=== PATIENT | female | born 1950 | race American Indian/Alaskan Native ===

== ENCOUNTER 2018-02-21 11:26 | Day surgery (SDC) | payer MEDICARE ==
[~2018-02-21 11:26] MED LIST: ANCEF/STERILE WATER 2 GM/20 ML IV NR; DIPRIVAN 10 MG/ML IV ONE; SUBLIMAZE ONE; XYLOCAINE MPF 2% ONE
[2018-02-21] MEDS ORDERED: NACL BACTERIOSTATIC INFILTRATI ONE (12:35)
--- NOTE | 2018-02-21 12:52 | Anesthesia Day of Surgery ---
Anesthesia Day of Surgery - Day of Surgery Patient Examined: Yes Patient H&P Reviewed: Yes Patient is NPO: Yes
[2018-02-21] MEDS ORDERED: DILAUDID IV PRN (12:53)
[2018-02-21] MEDS ORDERED: ZOFRAN IV PRN (12:53)
--- NOTE | 2018-02-21 12:53 | Anesthesia Consultation ---
Anesthesia Consult and Med Hx Date of service: 02/21/18 - Airway Anesthetic Teeth Evaluation: Good ROM Head & Neck: Adequate Mental/Hyoid Distance: Adequate Mallampati Class: Class I Intubation Access Assessment: Good - Pulmonary Exam CTA: Yes - Cardiac Exam Cardiac Exam: RRR - Pre-Operative Health Status ASA Pre-Surgery Classification: ASA2 Proposed Anesthetic Plan: General (Ga with LMA ok) - Pulmonary Hx Smoking: Yes (1/2PPD X 30 YRS) COPD: Yes (DAILY INHALERS) Hx Sleep Apnea: (BENJA PRE SCREEN LOW RISK) - Cardiovascular System Hx Hypertension: Yes (X 2 YRS) Hx Peripheral Vascular Disease: Yes (LEGS- WITH PAIN/ HAS STENTS) - Hematic Hx Anemia: Yes (ON DAILY IRON) Hx Sickle Cell Disease: No (SC TRAIT ONLY)
[2018-02-21 12:58] LABS: Basophils % (Auto) 0.9 % (0.0-1.8); Eosinophils % (Auto) 0.8 % (0.0-4.3); Hematocrit 47.5 % (30.3-42.9); Hemoglobin 14.8 gm/dl (10.1-14.3); Lymphocytes # (Auto) 1.3 K/mm3 (1.2-5.4); Lymphocytes % (Auto) 30.3 % (13.4-35.0); Mean Corpuscular HGB Conc 31 % (30-34); Mean Corpuscular Hemoglobin 25 pg (28-32); Mean Corpuscular Volume 79 fl (79-97); Monocytes # (Auto) 0.4 K/mm3 (0.0-0.8); Monocytes % (Auto) 8.5 % (0.0-7.3); Red Cell Distribution Width 18.5 % (13.2-15.2)
[2018-02-21] MEDS ORDERED: LACTATED RINGERS 1,000 ML IV SCH ×2 (13:00)
[2018-02-21] MEDS ORDERED: VERSED IV NR (13:00)
[2018-02-21] MEDS ORDERED: VERSED IV PRN (13:00)
[2018-02-21 13:10] LABS: BUN/Creatinine Ratio 12; Blood Urea Nitrogen 11 mg/dL (7-17); Calcium 9.3 mg/dL (8.4-10.2); Hemolysis Index 35
[2018-02-21] MEDS ORDERED: D50W (25GM) Syringe IV ONE (13:17)
[2018-02-21] MEDS ORDERED: WATER FOR IRRIG STERILE IR ONE (13:35)
[2018-02-21] MEDS ORDERED: OMNIPAQUE (300 MG) IR ONE (13:43)
[2018-02-21] MEDS ORDERED: NEO SYNEPHRINE/NS Syringe(OR USE) IV ONE (13:44)
[2018-02-21] MEDS ORDERED: ZOFRAN ONE (14:09)
--- NOTE | 2018-02-21 14:19 | Short Stay Summary ---
Short Stay Documentation Date of service: 02/21/18 - History H&P: obtained from office - Allergies and Medications Current Medications: Allergies Sulfa (Sulfonamide Antibiotics) Allergy (Verified 02/12/18 11:45) Hives Home Medications Medication Instructions Recorded Confirmed Last Taken Type ALBUTEROL Inhaler [Proair] 2 puff IH BID 02/12/18 02/21/18 02/20/18 20:00 History Alendronate Sodium [Fosamax] 70 mg PO QWEEK 02/12/18 02/21/18 02/14/18 History Aspirin [Lo-Dose Aspirin EC] 81 mg PO DAILY 02/12/18 02/21/18 02/14/18 History Carvedilol [Coreg] 3.125 mg PO BID 02/12/18 02/21/18 02/21/18 07:00 History Cilostazol [Pletal] 50 mg PO BID 02/12/18 02/21/18 02/14/18 History Ferrous Sulfate [Iron] 325 mg PO DAILY 02/12/18 02/21/18 02/20/18 History Simvastatin [Zocor TAB] 40 mg PO QHS 02/12/18 02/21/18 02/20/18 History Tizanidine HCl [Zanaflex] 4 mg PO PRN PRN 02/12/18 02/21/18 02/20/18 History traMADol [Ultram] 50 mg PO Q4HR PRN 02/12/18 02/21/18 02/20/18 History Active Medications Cefazolin Sodium (Ancef/Sterile Water 2 Gm/20 Ml) 2 gm IV PREOP NR Stop: 02/21/18 16:00 Hydromorphone HCl (Dilaudid) 0.25 mg IV Q10MIN PRN PRN Reason: Pain, Moderate (4-6) Lactated Ringer's (Lactated Ringers) 1,000 mls @ 100 mls/hr IV DIRECT SANCHEZ Last Admin: 02/21/18 13:00 Dose: 100 mls/hr Lactated Ringer's (Lactated Ringers) 1,000 mls @ 100 mls/hr IV DIRECT SANCHEZ Midazolam HCl (Versed) 2 mg IV PREOP NR Stop: 02/21/18 23:59 Last Admin: 02/21/18 13:00 Dose: 2 mg Ondansetron HCl (Zofran) 4 mg IV ONCE PRN PRN Reason: Nausea And Vomiting - Brief post op/procedure progress note Date of procedure: 02/21/18 Pre-op diagnosis: rt hydronephrosis Post-op diagnosis: same Procedure: cysto, rpg, ureteral dilation, ureteroscopy, stent (6x24) external string Anesthesia: LEANDRO Surgeon: KENZIE PFEIFFER Estimated blood loss: minimal Condition: stable - Hospital course Hospital course: bisi franklin, post op info on chart - Disposition Condition at discharge: Stable Disposition: DC-01 TO HOME OR SELFCARE Short Stay Discharge Plan Follow up with: JAMIL BUSBY [Other] - 7 Days
[2018-02-21 14:29] LABS: Platelet Count 126 K/mm3 (140-440)
--- NOTE | 2018-02-21 14:45 | Operative Report ---
PREOPERATIVE DIAGNOSIS: Right hydronephrosis. POSTOPERATIVE DIAGNOSES: Right hydronephrosis secondary to stricture. PROCEDURE: Cystoscopy, bilateral retrograde pyelograms, right ureteral dilatation, right flexible ureteroscopy, right double-J stent placement (6-[place] 24 cm with an external string). SURGEON: Vitaliy Garcia MD ANESTHESIA: General. ESTIMATED BLOOD LOSS: Minimal. FLUIDS: Crystalloid. COMPLICATIONS: No complications. INDICATIONS: This patient is a 67-year-old female seen in the office for right hydronephrosis. She actually has bilateral flank pain. Discussed options. She was cleared by primary care physician (Dr. Rowan). Also, her CT and MRI revealed significant degenerative joint disease. DESCRIPTION OF PROCEDURE: The patient was taken to the operative suite, placed in a supine position. After adequate general anesthesia, placed in a dorsal lithotomy position, prepped and draped in a sterile fashion. Pancystourethroscopy was performed with a 22-[place] Storz cystoscope, no urethral or bladder abnormalities. Both ureteral orifices in normal position. Bilateral retrograde pyelograms were obtained with an 8-[place] catheter and 8 mL of contrast. No filling defects or obstruction on the left. Right side revealed a convoluted ureter with some lateral deviation and two areas of stenosis in the proximal and distal ureter. She also had an aortobifemoral graft that may have had some scar tissue at the time of that surgery. Two 0.035 Glidewires were placed. Attempts at flexible ureteroscopy were unsuccessful, needed a 12-[place] access sheath to dilate the tract. Flexible ureteroscopy up to the renal pelvis, no obvious stone. I could see some areas of stenosis. A 6-[place] 24 cm double-J stent was placed with an external string indwelling. No stones could be appreciated, appears her pain may be due to her significant spine disease. She was extubated and taken to recovery room. She will go home on [employer] and Minimally invasive devices and follow up in the office. JOB# [id number] CRYSTAL/IRLANDA
[2018-02-21] MEDS ORDERED: NORCO 5/325 PO PRN (16:00)
--- NOTE | 2018-02-21 17:00 | Post Anesthesia Evaluation ---
- Post Anesthesia Evaluation Patient Participated: Yes Airway Patent: Yes Stable Respiratory Function: Yes Nausea/Vomiting: No Temp > 96.8F: Yes Pain Manageable: Yes Adequeate Hydration: Yes Anesthesia Complications: No Block Receding Appropriately: Not Applicable Patient on Ventilator: No
[2018-02-21 17:17] VITALS: BP 120/56
--- NOTE | 2018-02-22 07:16 | Fluoroscopy Report ---
FLUOROSCOPY RETROGRADE UROGRAPHY: HISTORY: Right hydronephrosis, right ureteral stricture. FINDINGS: Fluoroscopy was provided by radiology during retrograde urography by the urologist. 12 fluoroscopic images were captured. The left retrograde pyelogram is within normal limits. There is moderate pyelocaliectasis within the right renal collecting system. There appears to be a stricture near the right ureteropelvic junction. No definite ureteral stones or filling defects were demonstrated. Subsequent images demonstrate dilatation of the proximal right ureter and placement of a right ureteral stent which adequately drains the right renal collecting system on the final image. IMPRESSION: Right ureteral stricture. Right ureteral stent placement.
== END 2018-02-21 17:06 | disposition home or self-care (01) ==
LOC: OR 11:26
PROVIDERS: ATTEND Urology
DX: N13.1 Hydronephrosis with ureteral stricture, not elsewhere classified (principal); Z79.899 Other long term (current) drug therapy
CPT/HCPCS: 36415; 52351; 74420; 80048; 82962; 85025; A4217; C1726; C1758; C1769; C2617; J0690; J2250; J2370; J2405; J2704; J7120; Q9967; J3010